=== PATIENT | male | born 1930 | race Caucasian/White ===

== ENCOUNTER → 2017-02-28 | Outpatient (CLI) | payer MEDICARE, OTHER ==
[2016-08-13 11:00] VITALS: BMI 23.8
[~2017-02-28] MED LIST: ACET500T68 PO; AMOX-557 PO; ASPI-1471 PO; ASPI-715 PO; ASPI81TA94 PO; AZIT-1 PO; BACDS PO; BENZ200C15 PO; BUME0.5T10 PO; BUME1TAB19 PO; CALC-41 PO; CALC-547 PO; CALC1TAB32 PO; CEF300 PO; CEP500 PO; CLAR-1 PO; DAR75 PO; DARI15TA5 PO; DIPH-1 PO; DOC100 PO; DOCU-416 PO; FAM20 PO; FLUT16SP19 NS; GLUC-198 PO; IBU600 PO; IBUP-56 PO; IPR14R; IPRA30SP NS; IPRN ENA; LOR5 PO; LOR5/325 PO; LUTE20CA11 PO; MULT-1 PO; MULT-1335 PO; MULT-865 PO; MUP2T TOP; ONDA4TAB PO; OXYB10TA21 PO; OXYC-865 PO; OXYC1TAB54 PO; OXYGENHOME INH; OXYM30MI5 NS; PER PO; PHEN200T32 PO; PHENA200 PO; PNEI IJ; PRA20 PO; PRAV20TA65 PO; PRAV40TA77 PO; PRAV40TA78 PO; PSE30 PO; ZINC50TA2 PO; calcium; mvi
[2017-02-28 09:27] LABS: PLATELET COUNT, AUTOMATED 286 K/uL (150-450)
--- NOTE | 2017-02-28 09:51 | RADIOLOGY IMAGING REPORT ---
FACILITY: [facility] - [place] PATIENT NAME: Harshil Oliver : 1930 MR: [id number] V: [id number] EXAM DATE: ORDERING PHYSICIAN: EDGAR KILLIAN TECHNOLOGIST: Location: [facility] [place] Patient: Harshil Oliver : 1930 Visit/Account:[id number] Date of Sevice: 02/28/2017 Exam type: CHEST PA AND LAT History: Bronchitis, cough, hypoxia, shortness of breath, previous smoker Comparison: November 17, 2016. Findings: Again noted is chronic peribronchial thickening throughout the lungs. There has however been a sligh t increase in the bronchovascular markings in the left lower lobe worrisome for superimposed infiltra te. There is no evidence of pleural effusions or overt pulmonary edema. Cardiac silhouette is steffi l in size. 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 Chronic peribronchial thickening Increased bronchovascular markings in the left lower lobe worrisome for an acute infiltrate Report Dictated By: Dominga Dyer MD at 02/28/2017 9:44 AM Report E-Signed By: Dominga Dyer MD at 02/28/2017 9:46 AM WSN:[email or web address]
== END ==
LOC: LAB 09:07
PROVIDERS: ATTEND Nurse Practitioner Primary Care
DX: R91.8 Other nonspecific abnormal finding of lung field (principal); J40 Bronchitis, not specified as acute or chronic; R05 Cough; R09.02 Hypoxemia
CPT/HCPCS: 36415; 71046; 82040; 82247; 82310; 82374; 82435; 82565; 82947; 84075; 84132; 84155; 84295; 84450; 84460; 84520; 85025

== ENCOUNTER → 2017-05-29 | Outpatient (CLI) | payer MEDICARE, OTHER ==
[2016-08-13 11:00] VITALS: BMI 23.8
[~2017-05-29] MED LIST changes: +ALBU2.5V36 INH
== END ==
LOC: LAB 17:17
PROVIDERS: ATTEND Urology
DX: C61 Malignant neoplasm of prostate (principal)
CPT/HCPCS: 36415; 84153